=== PATIENT | female | born 1955 | race Hispanic/Latino ===

== ENCOUNTER → 2021-04-19 | Outpatient (CLI) | payer OTHER, MEDICARE | END | disposition home or self-care (01) | LOC: SHCH 08:28 | PROVIDERS: ATTEND Internal Medicine Cardiovascular Disease | DX: I73.9 Peripheral vascular disease, unspecified (principal) | CPT/HCPCS: 93978 ==

== ENCOUNTER 2021-06-23 07:07 | Day surgery (SDC) | payer OTHER, MEDICARE ==
[2021-06-21 12:44] LABS: BASOPHILS % (AUTO) 0.7 % (0.0-5.0); EOSINOPHILS % (AUTO) 3.8 % (0.0-8.0); HEMATOCRIT 36.4 % (36-48); LYMPHOCYTES % (AUTO) 23.2 % (21.0-51.0); MEAN CORPUSCULAR HEMOGLOBIN 28.2 pg (27.0-33.0); MEAN CORPUSCULAR VOLUME 85.6 fL (79-99); MONOCYTES % (AUTO) 5.3 % (3.0-13.0); NEUTROPHILS % (AUTO) 66.6 % (40.0-77.0); PLATELET COUNT (AUTO) 292 K/uL (130-400); RED BLOOD CELL COUNT(AUTO) 4.25 MIL/uL (4.00-5.50); RED CELL DISTRIBUTION WIDTH 13.7 % (11.0-15.5); WHITE BLOOD COUNT (AUTO) 8.3 K/uL (4.8-10.8)
[2021-06-21 12:45] LABS: APPEARANCE,URINE Clear (CLEAR); BILIRUBIN,URINE Negative (NEGATIVE); COLOR,URINE Yellow (YELLOW); GLUCOSE, URINE (UA) Negative (NEGATIVE); KETONES,URINE Trace mg/dL (NEGATIVE); LEUKOCYTE ESTERASE ,URINE Moderate (NEGATIVE); NITRATE,URINE Negative (NEGATIVE); OCCULT BLOOD,URINE Negative (NEGATIVE); PROTEIN,URINE Negative (NEGATIVE)
[2021-06-21 12:56] LABS: BACTERIA,URINE Rare /HPF (None Seen); RBC,URINE 0-1 /HPF (0-1); SQUAMOUS EPITHELIAL CELL,UR Rare /HPF (0-2)
[2021-06-21 13:03] LABS: PROTHROMBIN TIME 10.9 SEC (9.6-11.6)
[2021-06-21 13:05] LABS: PARTIAL THROMBOPLASTIN TIME 26.9 SEC (26.3-35.5)
[2021-06-21 13:07] LABS: POTASSIUM 4.2 mmol/L (3.5-5.1)
[2021-06-22 08:59] VITALS: BP 152/69
[2021-06-23] VITALS (10 sets, daily range): BP systolic 99–137; BP diastolic 30–71
[~2021-06-23] VITALS: Ht 165.1 cm; Wt 77.0 kg
[~2021-06-23 07:07] MED LIST: AEC81 PO; ASPI-556 PO; ATOR40TA69 PO; ATOR40TA71 PO; EZET10TA13 PO; EZET10TA48 PO; INSU100I24 SQ; INSU200I4 SQ; LISI2.5T13 PO; LORA10TA7 PO; METF-444 PO; OMEP40CA21 PO; OZEMPIC SQ; PRAS10TA9 PO; SEMA1PEN3 SQ; VITAD50000 PO
[2021-06-23] MEDS ORDERED: 0.9%NACL 1000ML 0 ML IV ONE (07:08)
[2021-06-23] MEDS ORDERED: DEXTROSE 5 % AND 0.9 % NACL 1,000 ML IV STA (07:28)
[2021-06-23] MEDS ORDERED: HEPARIN 10,000 UNIT/10ML (1,000 UNIT/ML) VIAL ONE (10:27)
[2021-06-23] MEDS ORDERED: NICARDIPINE 25MG INJ IV ONE (10:28)
[2021-06-23] MEDS ORDERED: MIDAZOLAM HCL 1 MG/ML 2ML VIAL ONE ×2 (10:28→11:25)
[2021-06-23] MEDS ORDERED: IOHEXOL-350 50ML VIAL IV ONE (10:28)
[2021-06-23] MEDS ORDERED: NITROGLYCERIN 2 MG VIAL IV ONE (10:28)
[2021-06-23] MEDS ORDERED: IOHEXOL 350 MG/ML 100ML INFUS..BTL IV ONE (10:28)
[2021-06-23] MEDS ORDERED: MEPERIDINE-PF 25 MG/ML SYG ONE ×2 (10:28→11:26)
[2021-06-23] MEDS ORDERED: SODIUM BICARB 50MEQ 50ML VIAL 50 ML ONE (10:54)
[2021-06-23] MEDS ORDERED: LIDOCAINE HCL 400MG/20ML VIAL ONE (10:58)
[2021-06-23] MEDS ORDERED: NITROGLYCERIN 4.1 GM SPRAY TL ONE (11:25)
[2021-06-23] MEDS ORDERED: 0.9%NACL 1000ML 1,000 ML IV SCH (12:00)
[2021-06-23] MEDS ORDERED: DEXTROSE 50%-WATER 50 ML DISP.SYRIN IV PRN (12:00)
[2021-06-23] MEDS ORDERED: INSULIN HUMULIN R 100 UNIT/ML 3ML SQ SCH (16:30)
[2021-07-12] MEDS ORDERED: METF-444 PO (11:32)
[2021-07-12] MEDS ORDERED: INSU100I24 SQ (11:32)
== END 2021-06-23 16:30 | disposition home or self-care (01) ==
LOC: DAH 07:07
PROVIDERS: ATTEND Internal Medicine Cardiovascular Disease
DX: I25.119 Atherosclerotic heart disease of native coronary artery with unspecified angina pectoris (principal); I10 Essential (primary) hypertension; E78.5 Hyperlipidemia, unspecified; E11.9 Type 2 diabetes mellitus without complications; Z95.5 Presence of coronary angioplasty implant and graft; Z79.01 Long term (current) use of anticoagulants; Z79.899 Other long term (current) drug therapy; Z79.82 Long term (current) use of aspirin; Z98.890 Other specified postprocedural states; Z79.84 Long term (current) use of oral hypoglycemic drugs
CPT/HCPCS: 36415; 71045; 80048; 81001; 82948 ×3; 85025; 85610; 85730; 87088; 93005; 93454; A4215; A4216; A4221; A4222; A4223 ×3; A4606; A4663; C1769; C1894; J1644 ×2; J2175 ×2; J2250 ×2; J3490 ×4; J7042; J7070; Q9965; Q9967 ×2; 99156; 99157; J7030

== ENCOUNTER 2021-07-13 05:53 | Day surgery (SDC) | payer OTHER, MEDICARE ==
[2021-07-11 12:18] LABS: BASOPHILS % (AUTO) 0.9 % (0.0-5.0); EOSINOPHILS % (AUTO) 4.3 % (0.0-8.0); HEMATOCRIT 35.7 % (36-48); LYMPHOCYTES % (AUTO) 26.8 % (21.0-51.0); MEAN CORPUSCULAR HEMOGLOBIN 27.9 pg (27.0-33.0); MEAN CORPUSCULAR HGB CONC 32.8 g/dL (32.0-36.0); MEAN CORPUSCULAR VOLUME 85.2 fL (79-99); MONOCYTES % (AUTO) 5.6 % (3.0-13.0); NEUTROPHILS % (AUTO) 61.8 % (40.0-77.0); PLATELET COUNT (AUTO) 294 K/uL (130-400); RED BLOOD CELL COUNT(AUTO) 4.19 MIL/uL (4.00-5.50); RED CELL DISTRIBUTION WIDTH 13.6 % (11.0-15.5)
[2021-07-11 12:21] LABS: APPEARANCE,URINE Clear (CLEAR); BILIRUBIN,URINE Negative (NEGATIVE); COLOR,URINE Yellow (YELLOW); GLUCOSE, URINE (UA) 500 mg/dL (NEGATIVE); KETONES,URINE Trace mg/dL (NEGATIVE); LEUKOCYTE ESTERASE ,URINE Negative (NEGATIVE); NITRATE,URINE Negative (NEGATIVE); OCCULT BLOOD,URINE Negative (NEGATIVE); PH,URINE 5.5 (5.0-8.0); PROTEIN,URINE Negative (NEGATIVE)
[2021-07-11 12:32] LABS: CREATININE 0.9 mg/dL (0.5-1.5); POTASSIUM 3.8 mmol/L (3.5-5.1)
[2021-07-11 12:34] LABS: INR 0.98 (0.85-1.15); PROTHROMBIN TIME 10.7 SEC (9.6-11.6)
[2021-07-11 13:06] LABS: BACTERIA,URINE Rare /HPF (None Seen); MUCUS,URINE Moderate LPF (None Seen); RBC,URINE 0-1 /HPF (0-1); SQUAMOUS EPITHELIAL CELL,UR Rare /HPF (0-2); WBC,URINE 0-1 /HPF (0-1)
[~2021-07-13] VITALS: Ht 162.6 cm; Wt 76.4 kg
[2021-07-13] VITALS (13 sets, daily range): BP systolic 111–144; BP diastolic 45–61
[~2021-07-13 05:53] MED LIST changes: -ASPI-556 PO; -ATOR40TA71 PO; -EZET10TA48 PO; -INSU200I4 SQ; -LISI2.5T13 PO; -OZEMPIC SQ
[2021-07-13] MEDS ORDERED: 0.9%NACL 1000ML 1,000 ML IV ONE (06:28)
[2021-07-13] MEDS ORDERED: SODIUM BICARB 50MEQ 50ML VIAL 50 ML ONE (07:09)
[2021-07-13] MEDS ORDERED: IOHEXOL 350 MG/ML 100ML INFUS..BTL IV ONE (07:09)
[2021-07-13] MEDS ORDERED: IOHEXOL-350 50ML VIAL IV ONE (07:09)
[2021-07-13] MEDS ORDERED: MIDAZOLAM HCL 1 MG/ML 2ML VIAL ONE ×2 (07:09→07:39)
[2021-07-13] MEDS ORDERED: HEPARIN 10,000 UNIT/10ML (1,000 UNIT/ML) VIAL ONE (07:09)
[2021-07-13] MEDS ORDERED: NITROGLYCERIN 2 MG VIAL IV ONE (07:09)
[2021-07-13] MEDS ORDERED: MEPERIDINE-PF 25 MG/ML SYG ONE ×2 (07:09→07:39)
[2021-07-13] MEDS ORDERED: LIDOCAINE HCL 400MG/20ML VIAL ONE (07:10)
[2021-07-13] MEDS ORDERED: 0.9%NACL 1000ML 1,000 ML IV SCH ×2 (08:00→09:00)
[2021-07-13] MEDS ORDERED: NITROGLYCERIN 50MG/D5W 250ML 1 BOT IV PRN (09:00)
[2021-07-13] MEDS ORDERED: ACETAMINOPHEN WITH CODEINE 1 TAB TAB PO PRN (09:00)
[2021-07-13] MEDS ORDERED: ONDANSETRON 4MG INJ IVP PRN (09:00)
[2021-07-13] MEDS: ACETAMINOPHEN WITH CODEINE 1 TAB TAB PO PRN ×2 (12:10→13:30)
== END 2021-07-13 16:55 | disposition home or self-care (01) ==
LOC: DAH 05:53
PROVIDERS: ATTEND Internal Medicine Cardiovascular Disease
DX: I25.119 Atherosclerotic heart disease of native coronary artery with unspecified angina pectoris (principal); I10 Essential (primary) hypertension; E78.5 Hyperlipidemia, unspecified; E11.9 Type 2 diabetes mellitus without complications; Z79.899 Other long term (current) drug therapy; Z79.01 Long term (current) use of anticoagulants; Z79.82 Long term (current) use of aspirin; Z79.84 Long term (current) use of oral hypoglycemic drugs; Z98.890 Other specified postprocedural states; Z95.5 Presence of coronary angioplasty implant and graft
CPT/HCPCS: 36415; 71045; 80048; 81001; 82948 ×2; 85025; 85610; 85730; 92921; 93005; A4215; A4216; A4221; A4222; A4223 ×3; A4606; A4663; A6260; C1725; C1760; C1769 ×2; C1874; C1887; C1894; C9600; J1644 ×2; J2175 ×2; J2250 ×2; J3490 ×3; J7030; Q9965; Q9967 ×2; 99156; 99157

== ENCOUNTER → 2022-07-11 | Outpatient (CLI) | payer OTHER, MEDICARE ==
[~2022-07-11] MED LIST changes: -AEC81 PO; -EZET10TA13 PO; +ICOS1CAP2 PO; -INSU100I24 SQ; +INSU100V37 SQ; -LORA10TA7 PO; +METO25TA3 PO; +OZEMPIC SQ; -SEMA1PEN3 SQ; -VITAD50000 PO
== END | disposition home or self-care (01) ==
LOC: SHCH 08:25
PROVIDERS: ATTEND Internal Medicine Cardiovascular Disease
DX: I71.40 Abdominal aortic aneurysm, without rupture, unspecified (principal)
CPT/HCPCS: 93978

== ENCOUNTER → 2022-07-28 | Outpatient (CLI) | payer OTHER, MEDICARE | END | disposition home or self-care (01) | LOC: SHCH 07:35 | PROVIDERS: ATTEND Internal Medicine Cardiovascular Disease | DX: I73.9 Peripheral vascular disease, unspecified (principal); I25.10 Atherosclerotic heart disease of native coronary artery without angina pectoris; R60.9 Edema, unspecified | CPT/HCPCS: 93970 ==

== ENCOUNTER → 2022-08-16 | Outpatient (CLI) | payer OTHER, MEDICARE ==
[2022-08-16 12:23] LABS: BASOPHILS % (AUTO) 0.8 % (0.0-5.0); EOSINOPHILS % (AUTO) 4.6 % (0.0-8.0); HEMATOCRIT 33.3 % (36-48); LYMPHOCYTES % (AUTO) 27.7 % (21.0-51.0); MEAN CORPUSCULAR HEMOGLOBIN 28.4 pg (27.0-33.0); MONOCYTES % (AUTO) 6.8 % (3.0-13.0); NEUTROPHILS % (AUTO) 59.9 % (40.0-77.0); PLATELET COUNT (AUTO) 296 K/uL (130-400); RED BLOOD CELL COUNT(AUTO) 3.87 MIL/uL (4.00-5.50); RED CELL DISTRIBUTION WIDTH 12.9 % (11.0-15.5); WHITE BLOOD COUNT (AUTO) 6.3 K/uL (4.8-10.8)
[2022-08-16 12:57] LABS: ALBUMIN 3.9 g/dL (3.5-5.0); POTASSIUM 4.1 mmol/L (3.5-5.1); T4 (THYROXINE) 9.1 ug/dL (4.7-13.3); THYROID STIMULATING HORMONE 1.35 uIU/mL (0.36-3.74); TOTAL PROTEIN, SERUM 7.7 g/dL (6.0-8.3)
== END | disposition home or self-care (01) ==
LOC: LAB 09:50
PROVIDERS: ATTEND Internal Medicine Cardiovascular Disease
DX: I65.23 Occlusion and stenosis of bilateral carotid arteries (principal); I10 Essential (primary) hypertension
CPT/HCPCS: 36415; 80053; 84436; 84443; 84479; 85025

== ENCOUNTER → 2022-09-19 | Outpatient (CLI) | payer OTHER, MEDICARE | END | disposition home or self-care (01) | LOC: SLP 10:00 | PROVIDERS: ATTEND Internal Medicine Cardiovascular Disease | DX: G47.33 Obstructive sleep apnea (adult) (pediatric) (principal) | CPT/HCPCS: 95810 ==

== ENCOUNTER → 2022-09-19 | Outpatient (CLI) | payer OTHER, MEDICARE ==
[~2022-09-19] MED LIST changes: +ALBUTEROL 0.083% 2.5 MG/3 ML INH IH ONE
== END | disposition home or self-care (01) ==
LOC: RESP 12:13
PROVIDERS: ATTEND Internal Medicine Cardiovascular Disease
DX: R06.00 Dyspnea, unspecified (principal)
CPT/HCPCS: 94060

== ENCOUNTER → 2022-10-12 | Outpatient (CLI) | payer OTHER, MEDICARE ==
[~2022-10-12] MED LIST changes: -ALBUTEROL 0.083% 2.5 MG/3 ML INH IH ONE
== END | disposition home or self-care (01) ==
LOC: SLP 19:46
PROVIDERS: ATTEND Internal Medicine Cardiovascular Disease
DX: G47.33 Obstructive sleep apnea (adult) (pediatric) (principal)
CPT/HCPCS: 95811

== ENCOUNTER → 2022-10-16 | Outpatient (CLI) | payer OTHER, MEDICARE | END | disposition home or self-care (01) | LOC: SHCH 08:35 | PROVIDERS: ATTEND Internal Medicine Cardiovascular Disease | DX: I65.23 Occlusion and stenosis of bilateral carotid arteries (principal); I25.10 Atherosclerotic heart disease of native coronary artery without angina pectoris; I73.9 Peripheral vascular disease, unspecified; Z95.828 Presence of other vascular implants and grafts | CPT/HCPCS: 93880 ==

== ENCOUNTER → 2022-10-19 | Outpatient (CLI) | payer OTHER, MEDICARE ==
[~2022-10-19] MED LIST changes: +IOHEXOL 350 MG/ML 100ML INFUS..BTL IV ONE
== END | disposition home or self-care (01) ==
LOC: RAH 07:23
PROVIDERS: ATTEND Internal Medicine Cardiovascular Disease
DX: M47.815 Spondylosis without myelopathy or radiculopathy, thoracolumbar region (principal); R07.9 Chest pain, unspecified
CPT/HCPCS: 75574; Q9967

== ENCOUNTER → 2022-11-22 | Outpatient (CLI) | payer OTHER, MEDICARE ==
[~2022-11-22] MED LIST changes: +IOHEXOL-350 50ML VIAL IV ONE
== END | disposition home or self-care (01) ==
LOC: RAH 08:41
PROVIDERS: ATTEND Internal Medicine Cardiovascular Disease
DX: I65.23 Occlusion and stenosis of bilateral carotid arteries (principal); K57.30 Diverticulosis of large intestine without perforation or abscess without bleeding; Z95.828 Presence of other vascular implants and grafts; Z90.49 Acquired absence of other specified parts of digestive tract
CPT/HCPCS: 75635; Q9967 ×2

== ENCOUNTER 2023-01-13 17:28 | Emergency (ER) | payer OTHER, MEDICARE ==
[~2023-01-13] VITALS: Ht 162.6 cm; Wt 72.6 kg
[~2023-01-13 17:28] MED LIST changes: -IOHEXOL 350 MG/ML 100ML INFUS..BTL IV ONE; -IOHEXOL-350 50ML VIAL IV ONE
[2023-01-13 18:24] LABS: ABG OXYGEN SATURATION 59.9 % (95.0-99.0); BASE EXCESS,VENOUS BLOOD GAS 2.1 (-2.0-3.0); HCO3,VENOUS BLOOD GAS 28.3 (21.0-28.0); PCO2,VENOUS BLOOD GAS 50 (32-45); PH,VENOUS BLOOD GAS 7.371 (7.350-7.450)
[2023-01-13 18:30] LABS: BASOPHILS % (AUTO) 0.7 % (0.0-5.0); HEMATOCRIT 30.4 % (36-48); LYMPHOCYTES % (AUTO) 27.9 % (21.0-51.0); MEAN CORPUSCULAR HEMOGLOBIN 26.6 pg (27.0-33.0); MEAN CORPUSCULAR HGB CONC 32.6 g/dL (32.0-36.0); MEAN CORPUSCULAR VOLUME 81.7 fL (79-99); MONOCYTES % (AUTO) 7.8 % (3.0-13.0); NEUTROPHILS % (AUTO) 60.2 % (40.0-77.0); PLATELET COUNT (AUTO) 278 K/uL (130-400); RED BLOOD CELL COUNT(AUTO) 3.72 MIL/uL (4.00-5.50); RED CELL DISTRIBUTION WIDTH 13.1 % (11.0-15.5); WHITE BLOOD COUNT (AUTO) 5.4 K/uL (4.8-10.8)
[2023-01-13] MEDS ORDERED: 0.9%NACL 1000ML 2,000 ML IV ONE (18:30)
[2023-01-13 18:54] LABS: APPEARANCE,URINE CLEAR (CLEAR); BILIRUBIN,URINE NEGATIVE (NEGATIVE); COLOR,URINE LIGHT-YELLOW (YELLOW); GLUCOSE, URINE (UA) >=1000 mg/dL (NEGATIVE); KETONES,URINE NEGATIVE (NEGATIVE); LEUKOCYTE ESTERASE ,URINE 25 Leu/uL (NEGATIVE); NITRATE,URINE NEGATIVE (NEGATIVE); OCCULT BLOOD,URINE NEGATIVE (NEGATIVE); PROTEIN,URINE NEGATIVE (NEGATIVE); UROBILINOGEN,URINE 0.2 mg/dL (0.2-1.0)
[2023-01-13 18:55] LABS: ALBUMIN 3.6 g/dL (3.5-5.0); CREATININE 1.5 mg/dL (0.5-1.5); MAGNESIUM 1.5 mg/dL (1.80-2.40); TOTAL PROTEIN, SERUM 7.1 g/dL (6.0-8.3)
[2023-01-13 19:04] LABS: BACTERIA,URINE RARE /HPF (None Seen); RBC,URINE 0-1 /HPF (0-1); SQUAMOUS EPITHELIAL CELL,UR FEW /HPF (0-2)
[2023-01-13] MEDS ORDERED: INSULIN HUMULIN R 100 UNIT/ML 3ML SQ ONE (19:30)
[2023-01-13] MEDS ORDERED: MAGNESIUM 2GM PREMIX 50ML 50 ML IV SCH (19:30)
[2023-01-13 23:15] VITALS: BP 131/85
== END 2023-01-13 23:21 | disposition home or self-care (01) ==
LOC: EDH 17:28
DX: E11.65 Type 2 diabetes mellitus with hyperglycemia (principal); E83.42 Hypomagnesemia; Z79.4 Long term (current) use of insulin; Z79.84 Long term (current) use of oral hypoglycemic drugs; Z79.899 Other long term (current) drug therapy; Z95.1 Presence of aortocoronary bypass graft
CPT/HCPCS: 99284; 83735 ×2; 84484; 80053; 82803; 85025; 82948 ×2; 82010; 81001; 36415; 96365; 96361; 93005; 36600; J1815; J3475; J7030

== ENCOUNTER → 2024-01-08 | Outpatient (CLI) | payer OTHER, MEDICARE | END | disposition home or self-care (01) | LOC: SHCH 07:58 | PROVIDERS: ATTEND Internal Medicine Cardiovascular Disease | DX: I65.23 Occlusion and stenosis of bilateral carotid arteries (principal); I73.9 Peripheral vascular disease, unspecified; Z95.828 Presence of other vascular implants and grafts | CPT/HCPCS: 93880; 93978 ==

== ENCOUNTER → 2024-01-09 | Outpatient (CLI) | payer OTHER, MEDICARE ==
[~2024-01-09] MED LIST changes: +IOHEXOL 350 MG/ML 100ML INFUS..BTL IV ONE; +METOPROLOL TARTRATE 1 MG/ML 5ML VIAL IV ONE
== END | disposition home or self-care (01) ==
LOC: RAH 12-04 09:10
PROVIDERS: ATTEND Internal Medicine Cardiovascular Disease
DX: I25.10 Atherosclerotic heart disease of native coronary artery without angina pectoris (principal); R07.9 Chest pain, unspecified; M47.815 Spondylosis without myelopathy or radiculopathy, thoracolumbar region; Z95.5 Presence of coronary angioplasty implant and graft
CPT/HCPCS: 75574; J3490 ×2; Q9967 ×2

== ENCOUNTER → 2024-01-28 | Outpatient (CLI) | payer OTHER, MEDICARE ==
[~2024-01-28] VITALS: Ht 162.6 cm; Wt 62.7 kg
[~2024-01-28] MED LIST changes: +ASPI-449 PO; +DAPA10TA PO; -IOHEXOL 350 MG/ML 100ML INFUS..BTL IV ONE; -METOPROLOL TARTRATE 1 MG/ML 5ML VIAL IV ONE; +NITR0.4T50 SL; +PANT40TA54 PO; +TIRZ7.5P SQ
[2024-01-28 09:49] LABS: BASOPHILS # (AUTO) 0.03 K/uL (0.00-0.20); BASOPHILS % (AUTO) 0.9 % (0.0-5.0); EOSINOPHILS # (AUTO) 0.28 K/uL (0.00-0.70); EOSINOPHILS % (AUTO) 8.5 % (0.0-8.0); IMMATURE GRANULOCYTE ABSOLUTE 0.01 K/uL (0-1); LYMPHOCYTES % (AUTO) 29.9 % (21.0-51.0); MEAN CORPUSCULAR HEMOGLOBIN 27.5 pg (27.0-33.0); MEAN CORPUSCULAR HGB CONC 33.3 g/dL (32.0-36.0); MEAN CORPUSCULAR VOLUME 82.5 fL (79-99); MONOCYTES # (AUTO) 0.4 K/uL (0.1-1.0); NEUTROPHILS # (AUTO) 1.6 K/uL (1.8-7.7); NEUTROPHILS % (AUTO) 49.4 % (40.0-77.0); PLATELET COUNT (AUTO) 234 K/uL (130-400); WHITE BLOOD COUNT (AUTO) 3.3 K/uL (4.8-10.8)
[2024-01-28 09:56] LABS: ADD UA MICROSCOPIC YES; APPEARANCE,URINE CLEAR (CLEAR); BILIRUBIN,URINE NEGATIVE (NEGATIVE); COLOR,URINE LIGHT-YELLOW (YELLOW); GLUCOSE, URINE (UA) >=1000 mg/dL (NEGATIVE); KETONES,URINE NEGATIVE (NEGATIVE); LEUKOCYTE ESTERASE ,URINE 25 Leu/uL (NEGATIVE); NITRATE,URINE NEGATIVE (NEGATIVE); OCCULT BLOOD,URINE NEGATIVE (NEGATIVE); PH,URINE 5.5 (5.0-8.0); PROTEIN,URINE NEGATIVE (NEGATIVE); UROBILINOGEN,URINE 0.2 mg/dL (0.2-1.0)
[2024-01-28 09:59] LABS: INR <= 0.93 (0.85-1.15); POTASSIUM 3.9 mmol/L (3.5-5.1); PROTHROMBIN TIME 10.8 SEC (9.6-11.6)
[2024-01-28 10:00] LABS: PARTIAL THROMBOPLASTIN TIME 29.3 SEC (26.3-35.5)
[2024-01-28 10:03] LABS: BACTERIA,URINE RARE /HPF (None Seen); MUCUS,URINE RARE LPF (None Seen); SQUAMOUS EPITHELIAL CELL,UR RARE /HPF (0-2)
[2024-01-28 10:21] LABS: B-TYPE NATRIURETIC PEPTIDE 25 pg/mL (0-100)
[2024-01-28 10:22] VITALS: BP 114/52; PULSE 75; RESP 16
[2024-01-30 09:40] VITALS: BP 122/50; PULSE 85; RESP 16
[2024-01-30] MEDS: 0.9%NACL 1000ML 1,000 ML IV ONE (10:34)
== END | disposition home or self-care (01) ==
LOC: DAH 09:27 → EDSTATUS 10:00 → DAH 01-30 09:24
PROVIDERS: ATTEND Internal Medicine Cardiovascular Disease
DX: I25.10 Atherosclerotic heart disease of native coronary artery without angina pectoris (principal); I73.9 Peripheral vascular disease, unspecified; I65.23 Occlusion and stenosis of bilateral carotid arteries; Z79.01 Long term (current) use of anticoagulants; Z79.899 Other long term (current) drug therapy; Z53.8 Procedure and treatment not carried out for other reasons
CPT/HCPCS: 36415; 71045; 80048; 81001; 82948; 83880; 85025; 85610; 85730; 93005

== ENCOUNTER 2024-03-13 09:03 | Observation (INO) | payer OTHER, MEDICARE ==
[2024-03-11 08:58] LABS: BASOPHILS # (AUTO) 0.04 K/uL (0.00-0.20); BASOPHILS % (AUTO) 0.5 % (0.0-5.0); EOSINOPHILS # (AUTO) 0.21 K/uL (0.00-0.70); EOSINOPHILS % (AUTO) 2.9 % (0.0-8.0); HEMATOCRIT 34.4 % (36-48); IMMATURE GRANULOCYTE ABSOLUTE 0.03 K/uL (0-1); LYMPHOCYTES # (AUTO) 1.6 K/uL (1.0-4.8); LYMPHOCYTES % (AUTO) 21.2 % (21.0-51.0); MEAN CORPUSCULAR HEMOGLOBIN 27.9 pg (27.0-33.0); MEAN CORPUSCULAR HGB CONC 32.8 g/dL (32.0-36.0); MEAN CORPUSCULAR VOLUME 84.9 fL (79-99); MONOCYTES # (AUTO) 0.5 K/uL (0.1-1.0); MONOCYTES % (AUTO) 6.8 % (3.0-13.0); NEUTROPHILS % (AUTO) 68.2 % (40.0-77.0); PLATELET COUNT (AUTO) 246 K/uL (130-400); RED BLOOD CELL COUNT(AUTO) 4.05 MIL/uL (4.00-5.50); RED CELL DISTRIBUTION WIDTH 14.9 % (11.0-15.5); WHITE BLOOD COUNT (AUTO) 7.3 K/uL (4.8-10.8)
[2024-03-11 09:05] VITALS: BP 124/57; PULSE 75; RESP 17
[2024-03-11 09:07] LABS: POTASSIUM 4.5 mmol/L (3.5-5.1)
[2024-03-11 09:10] LABS: APPEARANCE,URINE CLEAR (CLEAR); BILIRUBIN,URINE NEGATIVE (NEGATIVE); COLOR,URINE LIGHT-YELLOW (YELLOW); GLUCOSE, URINE (UA) 50 mg/dL (NEGATIVE); KETONES,URINE NEGATIVE (NEGATIVE); LEUKOCYTE ESTERASE ,URINE 500 Leu/uL (NEGATIVE); NITRATE,URINE NEGATIVE (NEGATIVE); OCCULT BLOOD,URINE NEGATIVE (NEGATIVE); PROTEIN,URINE NEGATIVE (NEGATIVE); UROBILINOGEN,URINE 0.2 mg/dL (0.2-1.0)
[2024-03-11 09:12] LABS: INR <= 0.93 (0.85-1.15); PROTHROMBIN TIME 10.7 SEC (9.6-11.6)
[2024-03-11 09:13] LABS: PARTIAL THROMBOPLASTIN TIME 26.5 SEC (26.3-35.5)
[2024-03-11 09:25] LABS: ADD UA MICROSCOPIC YES
[2024-03-11 09:26] LABS: MUCUS,URINE RARE LPF (None Seen); SQUAMOUS EPITHELIAL CELL,UR FEW /HPF (0-2)
[2024-03-11 09:29] LABS: B-TYPE NATRIURETIC PEPTIDE 21 pg/mL (0-100)
[~2024-03-13] VITALS: Ht 167.6 cm; Wt 68.0 kg
[2024-03-13] VITALS (11 sets, daily range): BP systolic 126–155; BP diastolic 56–81; PULSE 68–83; RESP 18–19; O2SAT 99
[~2024-03-13 09:03] MED LIST changes: -METF-444 PO; -METO25TA3 PO; -OMEP40CA21 PO; -OZEMPIC SQ
[2024-03-13] MEDS: 0.9%NACL 1000ML 1,000 ML IV ONE (10:11)
[2024-03-13] MEDS ORDERED: SEMA2PEN SQ (10:17)
[2024-03-13] MEDS ORDERED: HEPARIN 10,000 UNIT/10ML (1,000 UNIT/ML) VIAL ONE ×2 (13:59→16:51)
[2024-03-13] MEDS ORDERED: LIDOCAINE HCL 400MG/20ML VIAL ONE (13:59)
[2024-03-13] MEDS ORDERED: SODIUM BICARB 50MEQ 50ML VIAL 50 ML ONE (13:59)
[2024-03-13] MEDS ORDERED: NITROGLYCERIN 50MG VIAL ONE (14:00)
[2024-03-13] MEDS ORDERED: IOHEXOL 350 MG/ML 100ML INFUS..BTL IV ONE (14:00)
[2024-03-13] MEDS ORDERED: NICARDIPINE 25MG INJ IV ONE (14:00)
[2024-03-13] MEDS ORDERED: IOHEXOL-350 50ML VIAL IV ONE (14:00)
[2024-03-13] MEDS ORDERED: DEXTROSE 50%-WATER 50 ML DISP.SYRIN IV ONE (16:15)
[2024-03-13] MEDS ORDERED: MIDAZOLAM HCL 1 MG/ML 2ML VIAL ONE ×2 (16:48→17:13)
[2024-03-13] MEDS ORDERED: MEPERIDINE-PF 25 MG/ML SYG ONE ×2 (16:48→17:13)
[2024-03-13] MEDS ORDERED: GLUCAGON 1MG KIT 1 MG ML IM PRN (17:30)
[2024-03-13] MEDS ORDERED: DEXTROSE 50%-WATER 50 ML DISP.SYRIN IV PRN (17:30)
[2024-03-13] MEDS ORDERED: NITROGLYCERIN 0.4 MG SL TAB SL PRN (18:00)
[2024-03-13] MEDS: 0.9%NACL 1000ML 1,000 ML IV SCH (20:20)
[2024-03-13] MEDS: INSULIN HUMULIN R 100 UNIT/ML 3ML SQ SCH (21:00)
[2024-03-13] MEDS ORDERED: ACETAMINOPHEN 325 MG TAB PO PRN (21:30)
[2024-03-13] MEDS ORDERED: ALBUTEROL 0.083% 2.5 MG/3 ML INH IH PRN (21:30)
[2024-03-13] MEDS ORDERED: HYDRALAZINE 20MG/ML VIAL IV PRN (21:30)
[2024-03-13] MEDS ORDERED: ONDANSETRON 4MG INJ IVP PRN (21:30)
[2024-03-13] MEDS ORDERED: LACTULOSE 20 GM/30 ML UDCUP PO PRN (21:30)
[2024-03-13] MEDS: GABAPENTIN 100 MG CAPSULE PO ONE (21:43)
[2024-03-13] MEDS: LIDOCAINE 5% TOPICAL PATCH TP ONE (23:21)
[2024-03-13] MEDS: ICOSAPENT ETHYL 2 GM PO SCH (23:22)
[2024-03-14 00:56] VITALS: PULSE 72; RESP 18; O2SAT 98
[2024-03-14 03:38] LABS: BASOPHILS # (AUTO) 0.03 K/uL (0.00-0.20); BASOPHILS % (AUTO) 0.4 % (0.0-5.0); EOSINOPHILS # (AUTO) 0.06 K/uL (0.00-0.70); EOSINOPHILS % (AUTO) 0.8 % (0.0-8.0); HEMATOCRIT 30.9 % (36-48); IMMATURE GRANULOCYTE ABSOLUTE 0.03 K/uL (0-1); LYMPHOCYTES # (AUTO) 0.9 K/uL (1.0-4.8); LYMPHOCYTES % (AUTO) 12.5 % (21.0-51.0); MEAN CORPUSCULAR HEMOGLOBIN 27.8 pg (27.0-33.0); MEAN CORPUSCULAR HGB CONC 32.4 g/dL (32.0-36.0); MEAN CORPUSCULAR VOLUME 85.8 fL (79-99); MONOCYTES # (AUTO) 0.3 K/uL (0.1-1.0); MONOCYTES % (AUTO) 3.8 % (3.0-13.0); NEUTROPHILS # (AUTO) 6.1 K/uL (1.8-7.7); NEUTROPHILS % (AUTO) 82.1 % (40.0-77.0); PLATELET COUNT (AUTO) 212 K/uL (130-400); RED CELL DISTRIBUTION WIDTH 14.5 % (11.0-15.5); WHITE BLOOD COUNT (AUTO) 7.5 K/uL (4.8-10.8)
[2024-03-14 03:48] LABS: HEMOGLOBIN A1C 6.7 % (4.0-6.0)
[2024-03-14 03:58] VITALS: BP 117/51; PULSE 79; RESP 18
[2024-03-14 04:00] LABS: CREATININE 0.8 mg/dL (0.5-1.0); MAGNESIUM 1.5 mg/dL (1.80-2.40); PHOSPHORUS 4.7 mg/dL (2.5-4.9); THYROID STIMULATING HORMONE 0.7 uIU/mL (0.36-3.74)
[2024-03-14 04:04] LABS: B-TYPE NATRIURETIC PEPTIDE 25 pg/mL (0-100)
[2024-03-14] MEDS: MAGNESIUM 2GM PREMIX 50ML 50 ML IV PRN (05:48)
[2024-03-14 07:23] VITALS: PULSE 70; RESP 18; O2SAT 98
[2024-03-14 08:00] VITALS: BP 106/49; PULSE 78; RESP 20; O2SAT 99
[2024-03-14] MEDS: INSULIN DEGLUDEC 20 UNIT SQ SCH (09:00)
[2024-03-14] MEDS: DAPAGLIFLOZIN PROPANEDIOL 10 MG PO SCH (10:06)
[2024-03-14] MEDS: ASPIRIN 81 MG EC TAB PO SCH (10:07)
[2024-03-14] MEDS: PRASUGREL HCL 10 MG TABLET PO SCH (10:07)
[2024-03-14] MEDS: PANTOPRAZOLE 40 MG TAB DR PO SCH (10:07)
[2024-03-14] MEDS: ATORVASTATIN 40 MG TABLET PO SCH (10:07)
[2024-03-14 12:28] VITALS: BP 106/49; PULSE 78; RESP 22
[2024-03-20] MEDS ORDERED: SEMAGLUTIDE 2 MG SQ SCH (09:00)
== END 2024-03-14 12:50 | disposition home or self-care (01) ==
LOC: DAH 09:03 → DAHIP 09:04 → UNDODISOB 09:05 → DAH 17:27 → 2AH 18:00
PROVIDERS: ADMIT Internal Medicine; ATTEND Internal Medicine Cardiovascular Disease
DX: I25.119 Atherosclerotic heart disease of native coronary artery with unspecified angina pectoris (principal); E78.5 Hyperlipidemia, unspecified; E11.9 Type 2 diabetes mellitus without complications; E04.2 Nontoxic multinodular goiter; G89.29 Other chronic pain; I65.21 Occlusion and stenosis of right carotid artery; K21.9 Gastro-esophageal reflux disease without esophagitis; F32.9 Major depressive disorder, single episode, unspecified; I10 Essential (primary) hypertension; Z79.899 Other long term (current) drug therapy; Z98.890 Other specified postprocedural states
CPT/HCPCS: 80048 ×2; 83880 ×2; 85025 ×2; 85610; 85730; 87088; 81001; 36415 ×2; 71045; 93005; 93458; 82948 ×6; 96374; 83036; 84443; 83735; 84100; 80061; 94664; C1769; C1894; C1874; C1760; C1887; Q9965; G0378 ×16; J3490 ×3; J7030; J7070; J1644 ×2; J2250 ×2; J2175 ×2; Q9967 ×2; A4215; A4223 ×3; A4335; A4222; A4221; A4663; A4216; A4606; C9600; J3475; 99156; 99157

== ENCOUNTER → 2024-03-19 | Outpatient (CLI) | payer OTHER, MEDICARE ==
[~2024-03-19] MED LIST changes: +SEMA2PEN SQ; -TIRZ7.5P SQ
== END | disposition home or self-care (01) ==
LOC: SHCH 12:20
PROVIDERS: ATTEND Internal Medicine Cardiovascular Disease
DX: R10.2 Pelvic and perineal pain (principal)
CPT/HCPCS: 93926

== ENCOUNTER → 2024-04-07 | Outpatient (CLI) | payer OTHER, MEDICARE ==
[2024-04-07 16:18] LABS: POTASSIUM 4.1 mmol/L (3.5-5.1)
== END | disposition home or self-care (01) ==
LOC: LAB 15:35
PROVIDERS: ATTEND Internal Medicine Cardiovascular Disease
DX: I10 Essential (primary) hypertension (principal); R07.9 Chest pain, unspecified
CPT/HCPCS: 36415; 80048

== ENCOUNTER → 2024-04-14 | Outpatient (CLI) | payer OTHER, MEDICARE ==
[~2024-04-14] MED LIST changes: +IOHEXOL 350 MG/ML 100ML INFUS..BTL IV ONE; +IOHEXOL-350 50ML VIAL IV ONE
== END | disposition home or self-care (01) ==
LOC: RAH 08:22
PROVIDERS: ATTEND Internal Medicine Cardiovascular Disease
DX: I70.203 Unspecified atherosclerosis of native arteries of extremities, bilateral legs (principal); K57.30 Diverticulosis of large intestine without perforation or abscess without bleeding; M47.815 Spondylosis without myelopathy or radiculopathy, thoracolumbar region; I25.10 Atherosclerotic heart disease of native coronary artery without angina pectoris; R06.00 Dyspnea, unspecified; Z95.9 Presence of cardiac and vascular implant and graft, unspecified; Z98.890 Other specified postprocedural states
CPT/HCPCS: 75635; Q9967 ×2

== ENCOUNTER → 2025-02-17 | Outpatient (CLI) | payer OTHER, MEDICARE ==
[~2025-02-17] MED LIST changes: +ALBUTEROL 0.083% 2.5 MG/3 ML INH IH ONE; -IOHEXOL 350 MG/ML 100ML INFUS..BTL IV ONE; -IOHEXOL-350 50ML VIAL IV ONE
== END | disposition home or self-care (01) ==
LOC: RESP 14:03
PROVIDERS: ATTEND Internal Medicine Cardiovascular Disease
DX: R06.02 Shortness of breath (principal)
CPT/HCPCS: 94060